=== PATIENT | female | born 2000 | race Caucasian/White ===

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

== ENCOUNTER 2019-01-31 20:07 | Emergency (ER) | payer SELFPAY ==
[~2019-01-31] VITALS: Ht 162 cm; Wt 86.0 kg
[~2019-01-31 20:07] MED LIST changes: +ACHD5005 PO; +Benzocaine/Menthol TP; +DOCU100C37 PO; +FERR325T18 PO; +IBUP-844 PO
[2019-01-31] MEDS ORDERED: AMOXICILLIN 500 MG (POLYMOX) CAP PO STA (20:32)
[2019-01-31] MEDS ORDERED: PRD20T PO (20:39)
[2019-01-31] MEDS ORDERED: AMOX500C2 PO (20:39)
--- NOTE | 2019-01-31 20:39 | ED EENT ---
History of Present Illness General Chief Complaint: Pediatric Illness/Problems Stated Complaint: LT EAR PAIN Nursing Triage Note: THE PT IS AMBULATORY TO THE ROOM WITHOUT DIFFICULTY. NO DISTRESS IS SEEN ON ARRIVAL. LOC IS NORMAL FOR THE PT. THE PT C/O OF LEFT EAR PAIN TODAY. Source: patient Exam Limitations: no limitations History of Present Illness Date Seen by Provider: Jan 31, 2019 Time Seen by Provider: 20:36 Initial Comments Left earache since 3 PM today. Cough runny nose sore throat for about 4 days. Timing/Duration: abrupt Severity: moderate Location: ear (L) Prearrival Treatment: no prearrival treatment Associated Symptoms: denies symptoms Allergies and Home Medications Allergies Uncoded Allergies: PANCOF (Allergy, Mild, HIVES, 02/11/18) PER MOTHER COUGH MEDICATION A CHILD Home Medications Docusate Sodium 100 Mg Capsule, 100 MG PO BID PRN for CONSTIPATION-1ST LINE Prescribed by: ANETA ANNA on 02/11/181839 Ferrous Sulfate 325 Mg Tablet, 325 MG PO DAILY Prescribed by: ANETA ANNA on 02/11/181839 Hydrocodone Bit/Acetaminophen 1 Tab Tab, 1 TAB PO Q4H PRN for PAIN-MODERATE Prescribed by: ANETA ANNA on 02/11/181839 Ibuprofen 600 Mg Tablet, 600 MG PO Q6H Prescribed by: ANETA ANNA on 02/11/181839 [Benzocaine/Menthol] 56 ML AEROSOL, 56 ML TP UD PRN for PAIN- SEE INSTRUCTIONS EXTERNAL USE ONLY Prescribed by: ANETA ANNA on 02/11/181839 Patient Home Medication List Home Medication List Reviewed: Yes Review of Systems Review of Systems Constitutional: see HPI; No chills, No fever Eyes: No Symptoms Reported Ears: See HPI, Pain Nose: see HPI, congestion Mouth: no symptoms reported Throat: see HPI, pain Respiratory: see HPI, cough Cardiovascular: no symptoms reported Musculoskeletal: no symptoms reported Skin: no symptoms reported Neurological: No Symptoms Reported Hematologic/Lymphatic: No Symptoms Reported Immunological/Allergic: no symptoms reported Past Cpfyskw-Iwlssi-Kgshir Hx Patient Social History Type Used: Cigarettes Former Smoker, Quit: Feb 19, 2017 Recent Foreign Travel: No Contact w/Someone Who Travel: No Recent Infectious Disease Expo: No Recent Hopitalizations: No Physical Abuse: No Sexual Abuse: No Mistreated: No Fear: No Immunizations Up To Date Tetanus Booster (TDap): Unknown PED Vaccines UTD: Yes Date of Influenza Vaccine: Feb 03, 2018 Seasonal Allergies Seasonal Allergies: No Past Medical History Surgeries: Yes (TUBES IN EARS AGE 11 YRS) Respiratory: No Cardiac: No Neurological: No Female Reproductive Disorders: Denies Sexually Transmitted Disease: No HIV/AIDS: No Genitourinary: Yes (DURING ) UTI-Chronic Gastrointestinal: No Musculoskeletal: No Endocrine: No HEENT: No Loss of Vision: Denies Hearing Impairment: Denies Cancer: No Psychosocial: No Integumentary: No Blood Disorders: No Family Medical History Abdominal aortic aneurysm MATERNAL GRANDFATHER Alcoholism 19 FATHER Arthritis MATERNAL GRANDMOTHER Asthma G8 SISTER Cardiovascular disease MATERNAL GRANDMOTHER (AFIB) Completed stroke MATERNAL GRANDMOTHER Diabetes mellitus MATERNAL GRANDMOTHER (ORAL MEDS) Drug abuse 19 FATHER FH FACTOR 11 MUTATION 19 MOTHER (FACTOR 2 MUTATION) G8 SISTER (FACTOR 2 MUTATION) Hypercholesterolemia MATERNAL GRANDMOTHER Hypertension MATERNAL GRANDMOTHER Respiratory disorder G8 SISTER (ASTHMA) MATERNAL GRANDFATHER (COPD) Thyroid disease 19 MOTHER Physical Exam Vital Signs Vital Signs - First Documented 01/31/19 20:16 Temp 36.5 Pulse 97 Resp 16 B/P (MAP) 132/82 Pulse Ox 99 Height, Weight, BMI Height: 5'1.00" Weight: 174lbs. 0.4oz. 78.180068rs; 32.00 BMI Method:Stated General Appearance: WD/WN, no apparent distress Eyes: bilateral eye normal inspection, bilateral eye PERRL, bilateral eye EOMI Ears: right ear TM normal; left ear TM red; bilateral ear auricle normal, bilateral ear canal normal Mouth/Throat: pharynx normal Neck: non-tender, full range of motion; No lymphadenopathy (R), No lymphadenopathy (L) Cardiovascular: regular rate, rhythm Respiratory: lungs clear, normal breath sounds, no respiratory distress, no accessory muscle use Gastrointestinal: soft Neurologic/Psychiatric: alert, normal mood/affect, oriented x 3 Skin: normal color, warm/dry Progress/Results/Core Measures Results/Orders My Orders Orders - KIARRA MELGOZA APRN Prednisone Tablet (Deltasone Tablet) (01/31/19 20:45) Amoxicillin Capsule (Polymox Capsule) (01/31/19 20:32) Vital Signs/I&O 01/31/19 20:16 Temp 36.5 Pulse 97 Resp 16 B/P (MAP) 132/82 Pulse Ox 99 Departure Impression Primary Impression: Otitis media Qualified Codes: H66.002 - Acute suppurative otitis media without spontaneous rupture of ear drum, left ear Disposition: HOME, SELF-CARE Condition: Stable Departure-Patient Inst. Decision time for Depature: 20:37 Referrals: NO,LOCAL PHYSICIAN (PCP/Family) Primary Care Physician Patient Instructions: Ear Infections (Otitis Media) (DC) Add. Discharge Instructions: 1. Tylenol and ibuprofen for pain control 2. Steroids and antibiotics as directed. Follow-up with your doctor his week. All discharge instructions reviewed with patient and/or family. Voiced understanding. Scripts Prednisone (Prednisone) 20 Mg Tab 40 MG PO DAILY, #6 TAB 0 Refills Prov: KIARRA MELGOZA APRN 01/31/19 Amoxicillin (Amoxicillin) 500 Mg Capsule 500 MG PO TID, #21 CAP 0 Refills Prov: KIARRA MELGOZA APRN 01/31/19 KIARRA MELGOZA APRN Jan 31, 2019 20:39
[2019-01-31] MEDS ORDERED: predniSONE 20 MG TAB PO ONE (20:45)
== END 2019-01-31 20:45 | disposition home or self-care (01) ==
LOC: EDUNIT# 20:07 → ER 20:09
DX: H66.92 Otitis media, unspecified, left ear (principal); Z88.8 Allergy status to other drugs, medicaments and biological substances; Z87.891 Personal history of nicotine dependence; Z96.22 Myringotomy tube(s) status; Z87.440 Personal history of urinary (tract) infections; Z82.49 Family history of ischemic heart disease and other diseases of the circulatory system
CPT/HCPCS: 99282

== ENCOUNTER → 2019-03-16 | Outpatient (CLI) | payer MEDICAID ==
[~2019-03-16] MED LIST changes: +AMOX500C2 PO; +PRD20T PO
--- NOTE | 2019-03-16 14:43 | Diagnostic Imaging Report ---
PROCEDURE: US non-OB pelvis comp/trans. TECHNIQUE: Multiple real-time grayscale images were obtained of the pelvis in various projections endovaginally. Transabdominal imaging was also performed. INDICATION: Pelvic pain. COMPARISON: There are no prior studies available for comparison. FINDINGS: The uterus is nongravid and not enlarged measuring 7.3 x 5.1 x 4 cm. The endometrial lining is not thickened measuring 3 mm. There is no focal mass involving the uterus to suggest a fibroid. Both ovaries were identified. There is good blood flow to each ovary. There is a 1.2 x 1.3 x 1.1 cm hypoechoic area associated with the right ovary. I suspect that this is a cyst. The left ovary is generally unremarkable. There is no solid pelvic mass or free fluid collection noted. IMPRESSION: There is a small benign-appearing cyst associated with the right ovary. There is no acute pelvic abnormality noted otherwise. Dictated by: Dictated on workstation # [id number]
== END ==
LOC: RAD 12:09
PROVIDERS: ATTEND Nurse Practitioner Women's Health
DX: N83.201 Unspecified ovarian cyst, right side (principal); R35.0 Frequency of micturition
CPT/HCPCS: 76830; 76856

== ENCOUNTER → 2019-09-29 | Outpatient (CLI) | payer MEDICAID ==
--- NOTE | 2019-09-29 12:45 | Diagnostic Imaging Report ---
PROCEDURE: US Non-ob pelvis comp/trans. TECHNIQUE: Multiple realtime grayscale images were obtained of the pelvis in various projections endovaginally. Transabdominal imaging was also performed. INDICATION: Pelvic pain and dyspareunia. FINDINGS: The uterus is anteverted measuring 7.8 x 3.2 x 4.2 cm. The endometrium is 6 mm in thickness. No myometrial mass is detected. The right ovary measures 2.6 x 1.2 x 1.5 cm and the left ovary measures 2.0 x 1.4 x 1.7 cm. There is blood flow to both ovaries. No adnexal mass or free fluid is detected. IMPRESSION: Unremarkable pelvic ultrasound. Dictated by: Dictated on workstation # [id number]
== END ==
LOC: RAD 09:54
PROVIDERS: ATTEND Obstetrics & Gynecology
DX: N94.10 Unspecified dyspareunia (principal); R10.2 Pelvic and perineal pain
CPT/HCPCS: 76830; 76856

== ENCOUNTER → 2022-12-25 | Outpatient (CLI) | payer MEDICAID ==
--- NOTE | 2022-12-25 15:47 | Diagnostic Imaging Report ---
PROCEDURE: Pelvic comp/transvaginal sonogram. TECHNIQUE: Complete transabdominal and transvaginal pelvic ultrasound was performed. In addition, limited pelvic Doppler was performed. INDICATION: Pelvic pain. Uterus is anteverted measuring 8.4 x 3.5 x 4.5 cm. Endometrium is 6 mm in thickness. No myometrial mass is detected. Right ovary measures 3.0 x 2.4 x 2.1 cm and left ovary measures 2.2 x 1.9 x 1.8 cm. Both ovaries show normal blood flow. No adnexal mass or free pelvic fluid is detected. IMPRESSION: Unremarkable transabdominal and transvaginal pelvic ultrasound with limited pelvic Doppler. Dictated by: Dictated on workstation # [id number]
== END ==
LOC: RAD 13:49
PROVIDERS: ATTEND Nurse Practitioner Women's Health
DX: R10.2 Pelvic and perineal pain (principal)
CPT/HCPCS: 76830; 76856